=== PATIENT | male | born 1960 ===

== ENCOUNTER 2020-11-28 13:50 | Emergency (ER) | payer BC ==
[2020-11-28 15:07] VITALS: BP 138/91
== END 2020-11-28 15:11 | disposition home or self-care (01) | DRG 300 ==
LOC: ED 13:50
DX: I80.8 Phlebitis and thrombophlebitis of other sites (principal); D68.2 Hereditary deficiency of other clotting factors; Z86.718 Personal history of other venous thrombosis and embolism

== ENCOUNTER 2023-12-13 13:25 | Emergency (ER) | payer BC ==
[~2023-12-13] VITALS: Ht 182.9 cm; Wt 86.2 kg
[2023-12-13] VITALS (31 sets, daily range): BP systolic 114–168; BP diastolic 74–98
[2023-12-13 14:00] LABS: BASO% 0.4 % (0-3); EOS% 2.4 % (0-8); HEMATOCRIT 43.8 % (39.0-50.0); HEMOGLOBIN 15.1 g/dl (14.0-18.0); IMMATURE GRANULOCYTES 0.1 % (0.0-5.0); LYMPH% 23.6 % (15-41); MEAN CELL VOLUME 97.3 fL CALC (80.0-100.0); MEAN CORPUSCULAR HGB 33.6 pG CALC (26.0-32.0); MEAN CORPUSCULAR HGB CONC 34.5 g/dL CAL (32.0-36.0); MONO% 7.7 % (2-13); NEUT# 4.6 thou/uL (1.82-7.42); NEUT% 65.8 % (42-76); RED BLOOD COUNT 4.5 mill/uL (4.70-6.10); RED CELL DISTRI WIDTH 11.8 % (11.5-15.5)
[2023-12-13 14:06] LABS: ALBUMIN 4.6 g/dL (3.2-5.0); BILIRUBIN, TOTAL 1.1 mg/dL (0.2-1.3); CREATININE 0.8 mg/dL (0.7-1.3); POTASSIUM 4.7 mmol/l (3.5-5.1); TOTAL PROTEIN 7.5 g/dL (6.3-8.2)
[2023-12-13] MEDS ORDERED: Heparin SODIUM (Porcine) 500 ML IV ONE (15:30)
[2023-12-13] MEDS ORDERED: Heparin SODIUM (Porcine) 5,000 UNITS/ML SDV IV ONE (15:30)
[2023-12-13 16:05] LABS: INTERNATIONAL NORMALIZED RATIO 1.1 RATIO (0.7-1.3)
[2023-12-13 16:07] LABS: PROTHROMBIN TIME 10.4 SECONDS (9.0-12.5)
[2023-12-13] MEDS ORDERED: ENOXAPARIN SODIUM 100 MG/ML SYR SC ONE (17:55)
[2023-12-13] MEDS ORDERED: LOVENOX100 MG/1 M SC (18:55)
[2023-12-13] MEDS ORDERED: PRADAXA150 M1 PO (18:55)
[2023-12-13] MEDS ORDERED: SODIUM CHLORIDE 0.9% 1,000 ML IV ONE (19:15)
== END 2023-12-13 20:56 | disposition home or self-care (01) | DRG 300 ==
LOC: ED 13:25
PROVIDERS: Family Medicine
DX: I82.412 Acute embolism and thrombosis of left femoral vein (principal); D68.2 Hereditary deficiency of other clotting factors; I82.432 Acute embolism and thrombosis of left popliteal vein; Z79.01 Long term (current) use of anticoagulants; Z86.718 Personal history of other venous thrombosis and embolism
CPT/HCPCS: J1644; J1650; Q9967